=== PATIENT | female | born 1995 | race Caucasian/White ===

== ENCOUNTER 2016-08-02 15:23 | Emergency (ER) | payer OTHER ==
[2016-08-02 15:49] VITALS: BP 115/71
--- NOTE | 2016-08-02 15:59 | UC ---
Epistaxis Nasal HPI - HPI Summary HPI Summary: hit nose with care door yesterday right side of nose painful, right nare was bleeding - History of Current Complaint Chief Complaint: UCTrauma Stated Complaint: NOSE INJURY Time Seen by Provider: 08/02/16 15:44 Hx Obtained From: Patient Hx Last Menstrual Period: 08/01/16 ?: No Onset/Duration: Gradual Onset, Lasting Days - 1, Still Present Timing: Constant - pain---bleeding resolved quickly Severity Initially: Mild Severity Currently: Mild Pain Intensity: 5 Pain Scale Used: 0-10 Numeric Character: Light - now resolved Aggravating Factor(s): Nasal Trauma Alleviating Factor(s): Pressure Associated Signs And Symptoms: Positive: Negative - Allergies/Home Medications Allergies/Adverse Reactions: Allergies Allergy/AdvReac Type Severity Reaction Status Date / Time No Known Allergies Allergy Verified 08/02/16 15:49 Home Medications: Home Medications Acetaminophen [Acetaminophen Extra Stren] 1,000 mg PO DAILY 08/02/16 [History Confirmed 08/02/16] PMH/Surg Hx/FS Hx/Imm Hx Previously Healthy: Yes Endocrine History Of: Denies: Diabetes - Surgical History Surgical History: None Surgery Procedure, Year, and Place: WISDOM TOOTH REMOVED September - Family History Known Family History: Positive: None Family History: no bhengi-dcflpejnccc-tcxuskbn issues in family lineage - Social 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 Lives: With Family Alcohol Use: None Substance Use Type: None Smoking Status (MU): Light Every Day Tobacco Smoker Amount Used/How Often: 1/2 PPD Have You Smoked in the Last Year: Yes Household Exposure Type: Cigarettes Cessation Counseling: Counseled 3+Min - 10 Min - Immunization History Most Recent Influenza Vaccination: APRIL 2015 Review of Systems Constitutional: Negative Skin: Negative Eyes: Negative ENT: Other - nasal pain right side of nose was bleeding now resolved, patient states it is tender and feels swollen to her Respiratory: Negative Cardiovascular: Negative Gastrointestinal: Negative Genitourinary: Negative Motor: Negative Neurovascular: Negative Musculoskeletal: Negative Neurological: Negative Psychological: Negative All Other Systems Reviewed And Are Negative: Yes Physical Exam Triage Information Reviewed: Yes Appearance: Well-Appearing, No Pain Distress, Well-Nourished Vital Signs: Initial Vital Signs Temp 98.6 F 08/02/16 15:45 Pulse 77 08/02/16 15:45 Resp 16 08/02/16 15:45 BP 115/71 08/02/16 15:45 Pulse Ox 100 08/02/16 15:45 Vital Signs Reviewed: Yes Eye Exam: Normal Eyes: Positive: Conjunctiva Clear ENT Exam: Normal ENT: Positive: Pharynx normal, TMs normal. Negative: Nasal congestion, Nasal drainage, TM bulging, Tonsillar swelling, Tonsillar exudate, Trismus, Muffled/ hoarse voice Dental Exam: Normal Neck exam: Normal Neck: Positive: Supple, Nontender, No Lymphadenopathy Respiratory Exam: Normal Respiratory: Positive: Chest non-tender, Lungs clear, Normal breath sounds, No respiratory distress, No accessory muscle use Cardiovascular Exam: Normal Cardiovascular: Positive: RRR, No Murmur, Pulses Normal, Brisk Capillary Refill Musculoskeletal Exam: Normal Musculoskeletal: Positive: Strength Intact, ROM Intact, No Edema Neurological Exam: Normal Neurological: Positive: Alert, Muscle Tone Normal Psychological Exam: Normal Psychological: Positive: Normal Response To Family Skin Exam: Normal Diagnostics - Laboratory Diagnostic Studies Completed/Ordered: chip fracture of nasal bone Epistaxis Nasal Course/Dx - Course Course Of Treatment: rest nasal saline, ibuprofen follow with ENT PRN - Differential Dx/Diagnosis Differential Diagnosis/HQI/PQRI: Allergic Rhinitis, Coagulopathy, Trauma Provider Diagnoses: Chip fracture nasal bone Discharge - Discharge Plan Condition: Stable Disposition: HOME Patient Education Materials: Ibuprofen (By mouth), Nasal Fracture (ED) Referrals: Leeanne Dillon MD [Primary Care Provider] - Prince Corona MD [Medical Doctor] - If Needed
--- NOTE | 2016-08-02 16:37 | RAD ---
INDICATION: Nasal bone trauma. TECHNIQUE: 3 views of the nasal bones were obtained including lateral and Olivia views. FINDINGS: There is a 1 mm tiny calcific density at the tip of the nasal bones possibly representing a small chip fracture. No other fractures are seen. There is mild deviation of the nasal septum toward the right side. IMPRESSION: SMALL CHIP FRACTURE OF THE TIP OF THE NASAL BONES.
== END 2016-08-02 16:45 | disposition home or self-care (01) ==
LOC: UCCORT 15:23
DX: S02.2XXA Fracture of nasal bones, initial encounter for closed fracture (principal); W22.8XXA Striking against or struck by other objects, initial encounter; Y93.9 Activity, unspecified; Y92.9 Unspecified place or not applicable; F17.210 Nicotine dependence, cigarettes, uncomplicated
CPT/HCPCS: 70160; 99211; G0463

== ENCOUNTER 2019-07-27 09:19 | Emergency (ER) | payer BC ==
--- OUTSIDE RECORDS SUMMARY | 2019-07-27 10:38 | XMS REPORT | Continuity of Care Document ---
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 Problems Description No Information Available Social History Type Date Description Comments Sex Unknown Tobacco Use Start: Unknown Currently smokes 1-5 Cigarettes Daily Smoking Status Reviewed: 06/25/19 Currently smokes 1-5 Cigarettes Daily ETOH Use Occasionally consumes alcohol Tobacco Use Start: Unknown Patient denies history of smoking Allergies, Adverse Reactions, Alerts Description No Known Drug Allergies Medications Active Medications SIG Qnty Indications Ordering Provider Date Topamax 1 tab by mouth 60tabs Thompson-Helm, 05/28/2019 25mg Tablets once a day Lenka M., PORTAL DEVELOPER Prozac tab by mouth 90caps Thompson-Helm, 05/28/2019 10mg Capsules every day every Lenka M., PORTAL DEVELOPER night Immunizations Description No Information Available Vital Signs Date Vital Result Comment 06/25/2019 2:15pm BP Systolic 111 mmHg BP Diastolic 64 mmHg Body Temperature 98.2 F Heart Rate 93 /min Respiratory Rate 18 /min Weight 1418.00 lb Pain Level 3 O2 % BldC Oximetry 98 % 05/28/2019 8:57am Weight 139.00 lb Results Test Acquired Facility Test Result H/L Range Note Date Laboratory 06/25/2019 [facility] A Strep neg Pos, Neg, test finding Invalid BUN 05/28/2019 N2N/CCD Import Blood Urea Nitrogen 8 7-18 SerPl-mCnc Creat 05/28/2019 N2N/CCD Import Creatinine 0.5 Low 0.6-1.3 SerPl-mCnc GFR/Bsa 05/28/2019 N2N/CCD Import Estimated GFR >60 >60 pred.non (Non- black SerPl [place]i MDRD-ArVRat GFR/Bsa 05/28/2019 N2N/CCD Import Estimated GFR >60 >60 pred.black () SerPl MDRD-ArVRat BUN/Creat 05/28/2019 N2N/CCD Import BUN/Creatinine 16.0 SerPl Ratio Sodium 05/28/2019 N2N/CCD Import Sodium Level 137 136-145 SerPl-sCnc Potassium 05/28/2019 N2N/CCD Import Potassium Level 3.8 3.5-5.1 SerPl-sCnc Chloride 05/28/2019 N2N/CCD Import Chloride Level 109 High 98-107 SerPl-sCnc Co2 05/28/2019 N2N/CCD Import Carbon Dioxide 24 21-32 SerPl-sCnc Level Anion Gap 05/28/2019 N2N/CCD Import Anion Gap 4 Low 8-16 SerPl-sCnc Calcium 05/28/2019 N2N/CCD Import Calcium Level 8.6 8.5-10.1 SerPl-mCnc Prot 05/28/2019 N2N/CCD Import Total Protein 7.0 6.4-8.2 SerPl-mCnc Albumin 05/28/2019 N2N/CCD Import Albumin 3.3 Low 3.4-5.0 SerPl-mCnc Globulin Ser 05/28/2019 N2N/CCD Import Globulin 3.7 1.9-4.3 Calc-mCnc Albumin/Glob 05/28/2019 N2N/CCD Import Albumin/Globulin 0.9 SerPl Ratio Bilirub 05/28/2019 N2N/CCD Import Total Bilirubin 0.2 0.2-1.0 SerPl-mCnc Ast 05/28/2019 N2N/CCD Import Aspartate Amino 12 Low 15-37 SerPl-cCnc Transf (Ast/Sgot) Alt 05/28/2019 N2N/CCD Import Alanine 13 12-78 SerPl-cCnc Aminotransferase (Alt/SGPT) Alp 05/28/2019 N2N/CCD Import Alkaline 51 45-117 SerPl-cCnc Phosphatase TSH 05/28/2019 N2N/CCD Import Thyroid Stimulating 1.29 0.30-4.20 SerPl-aCnc Hormone (TSH) CBC 05/28/2019 [facility] White Blood Count 7.5 K/uL Normal 3.1-10.7 1 W/Automated [address] [place] [address] [phone] Red Blood Count 4.25 M/uL Normal 3.90-5.40 Hemoglobin 12.3 gm/dL Normal 11.6-15.8 Hematocrit 37.6 % Normal 36.0-46.1 Mean Cell Volume 88.5 fl Normal 80.9-99.0 Mean Corpuscular HGB 28.9 pg Normal 25.9-32.7 Mean Corpuscular HGB Conc 32.7 g/dL Normal 30.8-34.3 Platelet Count 239 K/uL Normal 155-360 Red Cell Distri Width SD 40.8 fl Normal 36-47 Red Cell Distri Width %CV 12.7 % Normal 11.7-14.4 Mean Platelet Volume 12.7 fl High 8.9-12.4 Neut% 60.4 % Normal 40.4-72.8 Lymph % 30.7 % Normal 20.0-42.0 Nicholas % 6.7 % Normal 4.3-13.2 Eo% 1.5 % Normal 0.0-6.6 Bas% 0.4 % Normal 0.0-1.1 Immature Grans 0.3 % Normal 0.0-5.0 NRBC % 0.0 /100WBC < 10/ 100 WBC Neut# 4.53 K/uL Normal 1.8-7.0 Lymph # 2.30 K/uL Normal 1.0-4.0 Nicholas # 0.50 K/uL Normal 0.3-0.9 Eos # 0.11 K/uL Normal 0.0-0.5 Baso # 0.03 K/uL Normal 0.0-0.1 Immature Grans Absolute 0.02 K/uL NRBC # 0.00 K/uL Laboratory test 05/28/2019 [facility] Troponin-I < 0.015 [address] ng/[place] [address] [phone] MCV RBC Auto 05/28/2019 N2N/CCD Import Mean Corpuscular 88.5 80.9-99 Volume .0 MCH RBC Qn Auto 05/28/2019 N2N/CCD Import Mean Corpuscular 28.9 25.9-32 Hemoglobin .7 MCHC RBC 05/28/2019 N2N/CCD Import Mean Corpuscular 32.7 30.8-34 Auto-mCnc Hemoglobin .3 Concent RDW RBC Auto 05/28/2019 N2N/CCD Import Red Cell 40.8 36-47 Distribution Width RDW RBC Auto-Rto 05/28/2019 N2N/CCD Import RDW Coefficient 12.7 11.7-14 of Variation .4 Neutrophils/leuk 05/28/2019 N2N/CCD Import Neutrophils (%) 60.4 40.4-72 NFr Bld Auto (Auto) .8 Lymphocytes/leuk 05/28/2019 N2N/CCD Import Lymphocytes (%) 30.7 20.0-42 NFr Bld Auto (Auto) .0 Monocytes/leuk 05/28/2019 N2N/CCD Import Monocytes (%) 6.7 4.3-13. NFr Bld Auto (Auto) 2 Eosinophil/leuk 05/28/2019 N2N/CCD Import Eosinophils (%) 1.5 0.0-6.6 NFr Bld Auto (Auto) Basophils/leuk 05/28/2019 N2N/CCD Import Basophils (%) 0.4 0.0-1.1 NFr Bld Auto (Auto) Imm 05/28/2019 N2N/CCD Import Immature 0.3 0.0-5.0 Granulocytes/leuk Granulocyte % NFr Bld Auto (Auto) nRBC/100 WBC Bld 05/28/2019 N2N/CCD Import Nucleated Red 0.0 < 10/ Auto-Rto Blood Cells % 100 WBC (auto) Neutrophils # Bld 05/28/2019 N2N/CCD Import Neutrophils # 4.53 1.8-7.0 Auto (Auto) Lymphocytes # Bld 05/28/2019 N2N/CCD Import Lymphocytes # 2.30 1.0-4.0 Auto (Auto) Monocytes # Bld 05/28/2019 N2N/CCD Import Monocytes # 0.50 0.3-0.9 Auto (Auto) Eosinophil # Bld 05/28/2019 N2N/CCD Import Eosinophils # 0.11 0.0-0.5 Auto (Auto) Basophils # Bld 05/28/2019 N2N/CCD Import Basophils # 0.03 0.0-0.1 Auto (Auto) Imm Granulocytes 05/28/2019 N2N/CCD Import Immature 0.02 # Bld Auto Granulocyte # (Auto) nRBC # Bld Auto 05/28/2019 N2N/CCD Import Nucleated RBC 0.00 Absolute Count (auto) Glucose 05/28/2019 N2N/CCD Import Glucose Screen 80 74-106 SerPl-mCnc 1 SENT FROM THE WALK IN CLINIC FOR AN EKG 2 0.0 - 0.045 ng/mL: Normal 0.046 - 0.5 ng/mL: Suggestive 0.6 - 1.5 ng/mL: Consistent Procedures Date Code Description Status 05/28/2019 69232 Event Monitor Inter/Review Only Completed Medical Devices Description No Information Available Encounters Type Date Location Provider Dx Diagnosis Office Visit 06/25/2019 Walk In [facility]ai J02.9 Acute pharyngitis, 2:15p Lenka Dubose, PORTAL DEVELOPER unspecified Office Visit 05/28/2019 Walk In Clinic [facility], R07.9 Chest pain, 8:00a RISHABH Muñoz unspecified R00.2 Palpitations Assessments Date Code Description Provider 06/25/2019 J02.9 Acute pharyngitis, unspecified Lenka Vergara, PORTAL DEVELOPER 05/28/2019 R00.0 Tachycardia, unspecified Rodrigo Rosado M.D., [facility] 05/28/2019 R00.2 Palpitations Rodrigo Rosado M.D., [facility] 05/28/2019 R07.9 Chest pain, unspecified Jay-Lenka Glynn, PORTAL DEVELOPER 05/28/2019 R94.31 Abnormal electrocardiogram [ECG] [EKG] Rodrigo Rosado M.D., [facility] 05/28/2019 R00.2 Palpitations Lenka Vergara FNP Plan of Treatment Future Appointment(s):06/30/2019 2:00 pm - Kimo Pond PA at [facility] [place]/25/2019 - Lenka Vergara, DANIELLEPJ02.9 Acute pharyngitis, unspecifiedComments:Warm saltwater gargles, Get lots of rest. Maintain good clear fluid intake to stay well hydrated. Frequent handwashing to prevent spread of germs. Please avoid exposure to tobacco smoke and/or polluted air. Take Tylenol (acetaminophen), Advil(ibuprofen), or alleve( naproxen) as needed for fever or aches, dosage according to package directions. Please follow-up with your primary care provider within 1 week for recheck.You can return to work or school when fever free for 24 hours without the use of fever reducing medication.- Functional Status Description No Information Available Mental Status Description No Information Available Referrals Description No Information Available
--- OUTSIDE RECORDS SUMMARY | 2019-07-27 10:38 | XMS REPORT | Continuity of Care Document ---
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 Problems Description No Information Available Social History [...] 25mg Tablets once a day Lenka M., FRAME COVERER Prozac tab by mouth 90caps Thompson-Helm, 05/28/2019 10mg Capsules every day every Lenka M., FRAME COVERER night Nuvaring Unknown 0.12-0.015mg/24HR Ring Immunizations Description No Information Available Vital Signs Date Vital Result Comment 06/30/2019 2:05pm BP Systolic Sitting Left Arm 116 mmHg BP Diastolic Sitting Left Arm 78 mmHg Heart Rate 83 /min Respiratory Rate 18 /min Weight 142.00 lb O2 % BldC Oximetry 98 % Ora 06/25/2019 2:15pm BP Systolic 111 mmHg BP Diastolic 64 mmHg Body Temperature 98.2 F Heart Rate 93 /min Respiratory Rate 18 /min Weight 1418.00 lb Pain Level 3 O2 % BldC Oximetry 98 % Results Test Acquired Facility Test Result H/L Range Note Date Laboratory 06/25/2019 [facility] A Strep neg Pos, Neg, test finding Invalid BUN 05/28/2019 N2N/CCD Import Blood Urea Nitrogen 8 7-18 SerPl-mCnc Creat 05/28/2019 N2N/CCD Import Creatinine 0.5 Low 0.6-1.3 SerPl-mCnc GFR/Bsa 05/28/2019 N2N/CCD Import Estimated GFR >60 >60 pred.non (Non- black SerPl [place]ian MDRD-ArVRat GFR/Bsa 05/28/2019 N2N/CCD Import Estimated GFR [...] 1.29 0.30-4.20 SerPl-aCnc Hormone (TSH) CBC 05/28/2019 [facility] White Blood Count 7.5 K/uL Normal 3.1-10.7 1 W/Automated [address] [place] [address] [phone] Red Blood Count 4.25 M/uL Normal 3.90-5.40 [...] 40.4-72.8 Lymph % 30.7 % Normal 20.0-42.0 [place] % 6.7 % Normal 4.3-13.2 Eo% 1.5 % Normal 0.0-6.6 Bas% 0.4 % Normal 0.0-1.1 Immature Grans 0.3 % Normal 0.0-5.0 NRBC % 0.0 /100WBC < 10/ 100 WBC Neut# 4.53 K/uL Normal 1.8-7.0 Lymph # 2.30 K/uL Normal 1.0-4.0 Rice # 0.50 K/uL Normal 0.3-0.9 Eos # 0.11 K/uL Normal 0.0-0.5 Baso # 0.03 K/uL Normal 0.0-0.1 Immature Grans Absolute 0.02 K/uL NRBC # 0.00 K/uL Laboratory test 05/28/2019 [facility] Troponin-I < 0.015 [address] ng/[place] [address] [phone] MCV RBC Auto 05/28/2019 N2N/CCD Import Mean [...] Consistent Procedures Date Code Description Status 05/28/2019 80000 Event Monitor Inter/Review Only Completed Medical Devices Description No Information Available Encounters Type Date Location Provider Dx Diagnosis Office Visit 06/30/2019 Cardiology Office Kimo Pond, R00.2 Palpitations 2:00p PA M79.661 Pain in right lower leg I49.3 Ventricular premature depolarization F17.210 Nicotine dependence, cigarettes, uncomplicated Office Visit 06/25/2019 2:15p Walk In [facility], J02.9 Acute pharyngitis, Clinic Lenka MMartha, FRAME COVERER unspecified Office Visit 05/28/2019 8:00a Walk In [facility], R07.9 [facility] FRAME COVERER unspecified R00.2 Palpitations Assessments Date Code Description Provider 06/30/2019 R00.2 Palpitations Kimo Pond, PA 06/30/2019 M79.661 Pain in right lower leg Kimo Pond, PA 06/30/2019 I49.3 Ventricular premature depolarization Kimo Pond, PA 06/30/2019 F17.210 Nicotine dependence, cigarettes, Kimo Pond., PA uncomplicated 06/25/2019 J02.9 [facility]itis, [facility] FRAME COVERER 05/28/2019 R00.0 Tachycardia, unspecified Rodrigo Rosado M.D., [facility] 05/28/2019 R00.2 Palpitations Rodrigo Rosado M.D., [facility] 05/28/2019 R07.9 Chest pain, unspecified Lenka Vergara, FRAME COVERER 05/28/2019 R94.31 Abnormal electrocardiogram [ECG] Rodrigo Rosado M.D. , [EKG] [facility] 05/28/2019 R00.2 Palpitations [facility]ergara, [facility] Plan of Treatment 06/30/2019 - Kimo Pond, PAR00.2 PalpitationsComments:Reassurance provided. She does not require any further testing or treatment at this time. She was counseled to limit caffeine and alcohol intake. She is working to cut back on tobacco as well.M79.661 Pain in right lower legNew Xrays:Venous Doppler Lower Extremity Right, Scheduled: 06/30/19Comments:Will rule out DVT with venous doppler. I contacted radiology and they will assess for Cheung's cyst as well.I49.3 Ventricular premature gsfemizqreuuphK14.210 Nicotine dependence, cigarettes, uncomplicatedComments:She had no success with NRT in the past. She wishes to stop cold turkey.AllFollow up:We will see the patient on a PRN basis from this point. We would be happy to see them again as deemed necessary. She will call for results of the ultrasound. Functional Status Functional Condition Comment Date Status Independent with all ADL's Active Mental Status Description No Information Available Referrals Description No Information Available
--- OUTSIDE RECORDS SUMMARY | 2019-07-27 10:38 | XMS REPORT | Continuity of Care Document ---
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 Problems Description No Information Available Social History Type Date Description Comments Sex Unknown Cigarette Use Family Does Not Smoke ETOH Use Occasionally consumes alcohol Tobacco Use Start: Unknown Patient denies history of smoking Smoking Status Reviewed: 05/28/19 Patient denies history of smoking Allergies, Adverse Reactions, Alerts Description No Known Drug Allergies Medications Active Medications SIG Qnty Indications Ordering Provider Date Topamax 1 tab by mouth 60tabs Jai, 05/28/2019 25mg Tablets once a day Lenka Dubose, GEOPHYSICAL E LOGGER Prozac tab by mouth 90caps Jai, 05/28/2019 10mg Capsules every day every Lenka M., GEOPHYSICAL E LOGGER night Immunizations Description No Information Available Vital Signs Date Vital Result Comment 05/28/2019 8:57am Weight 139.00 lb 05/28/2019 8:57am Height 62 inches Weight 139.00 lb BMI (Body Mass Index) 25.4 kg/m2 Results Test Acquired Facility Test Result H/L Range Note Date BUN 05/28/2019 N2N/CCD Import [facility] 8 7[facility]18 [facility] 05/28/2019 N2N/CCD Import Creatinine 0.5 Low 0.6-1.3 [facility] GFR/Bsa 05/28/2019 N2N/CCD Import Estimated GFR >60 >60 pred.non (Non- black SerPl [place]ian MDRD-ArVRat GFR/Bsa 05/28/2019 N2N/CCD Import Estimated GFR [...] TSH 05/28/2019 N2N/CCD Import Thyroid Stimulating 1.29 0.30-4.2 SerPl-aCnc Hormone (TSH) 0 CBC 05/28/2019 [facility] White Blood Count 7.5 K/uL Normal 3.1-10.7 1 W/Automated [address] [place] [address] [phone] Red Blood Count 4.25 M/uL Normal 3.90-5.40 [...] 40.4-72.8 Lymph % 30.7 % Normal 20.0-42.0 [place] % 6.7 % Normal 4.3-13.2 Eo% 1.5 % Normal 0.0-6.6 Bas% 0.4 % Normal 0.0-1.1 Immature Grans 0.3 % Normal 0.0-5.0 NRBC % 0.0 /100WBC < 10/ 100 WBC Neut# 4.53 K/uL Normal 1.8-7.0 Lymph # 2.30 K/uL Normal 1.0-4.0 [place] # 0.50 K/uL Normal 0.3-0.9 Eos # 0.11 K/uL Normal 0.0-0.5 Baso # 0.03 K/uL Normal 0.0-0.1 Immature Grans Absolute 0.02 K/uL NRBC # 0.00 K/uL Laboratory test 05/28/2019 [facility] Troponin-I < 0.015 [address] ng/[place] [address] [phone] MCV RBC Auto 05/28/2019 N2N/CCD Import Mean [...] Suggestive 0.6 - 1.5 ng/mL: Consistent Procedures Description No Information Available Medical Devices Description No Information Available Encounters Type Date Location Provider Dx Diagnosis Office Visit 05/28/2019 Walk In Clinic Jai R07.9 Chest pain, 8:00a RISHABH Muñoz unspecified R00.2 Palpitations Assessments Date Code Description Provider 05/28/2019 R07.9 Chest pain, unspecified Lenka Vergara FNP 05/28/2019 R00.2 Palpitations Lenak Vergara FNP Plan of Treatment 05/28/2019 - Lenka Vergara, FNPR07.9 Chest pain, unspecifiedComments :Referred to Emergency Department at [facility] for further evaluation and treatment. Patient verbalized understanding of instructions regarding further Emergency evaluation and treatmentand agreed with need for transfer.R00.2 PalpitationsAllNew Medication:Topamax 25 mg - 1 tab by mouth once a dayProzac 10 mg - tab by mouth every day every night Functional Status Description No Information Available Mental Status Description No Information Available Referrals Description No Information Available
--- OUTSIDE RECORDS SUMMARY | 2019-07-27 10:38 | XMS REPORT | Continuity of Care Document ---
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 Problems Description No Information Available Social History [...] 25mg Tablets once a day Lenka M., SHOE REPAIRER HELPER Prozac tab by mouth 90caps [place], 05/28/2019 10mg Capsules every day every Lenka M., SHOE REPAIRER HELPER night Nuvaring Unknown 0.12-0.015mg/24HR Ring Immunizations Description [...] GFR >60 >60 pred.non (Non- black SerPl Micronesian MDRD-ArVRat GFR/Bsa 05/28/2019 N2N/CCD Import Estimated GFR [...] 1.29 0.30-4.20 SerPl-aCnc Hormone (TSH) CBC 05/28/2019 [facility] White Blood Count 7.5 K/uL Normal 3.1-10.7 1 W/Automated [address] [place] [address] [phone] Red Blood Count 4.25 M/uL Normal 3.90-5.40 [...] 40.4-72.8 Lymph % 30.7 % Normal 20.0-42.0 [place] % 6.7 % Normal 4.3-13.2 Eo% 1.5 % Normal 0.0-6.6 Bas% 0.4 % Normal 0.0-1.1 Immature Grans 0.3 % Normal 0.0-5.0 NRBC % 0.0 /100WBC < 10/ 100 WBC Neut# 4.53 K/uL Normal 1.8-7.0 Lymph # 2.30 K/uL Normal 1.0-4.0 [place] # 0.50 K/uL Normal 0.3-0.9 Eos # 0.11 K/uL Normal 0.0-0.5 Baso # 0.03 K/uL Normal 0.0-0.1 Immature Grans Absolute 0.02 K/uL NRBC # 0.00 K/uL Laboratory test 05/28/2019 [facility] Troponin-I < 0.015 [address] ng/[place] [address] [phone] MCV RBC Auto 05/28/2019 N2N/CCD Import Mean [...] Consistent Procedures Date Code Description Status 05/28/2019 97294 Event Monitor Inter/Review Only Completed Medical Devices Description No Information Available Encounters Type Date Location Provider Dx Diagnosis Office Visit 06/30/2019 Cardiology Office Kimo Pond, R00.2 Palpitations 2:00p PA M79.661 Pain in right lower leg I49.3 Ventricular premature depolarization F17.210 Nicotine dependence, cigarettes, uncomplicated Office Visit 06/25/2019 2:15p Walk In [facility], J02.9 Acute pharyngitis, Clinic Lenka Dubose, SHOE REPAIRER HELPER unspecified Office Visit 05/28/2019 8:00a Walk In [facility], R07.9 [facility] HEL[facility] unspecified R00.2 Palpitations Assessments Date Code Description Provider 06/30/2019 R00.2 Palpitations Kimo Pond, PA 06/30/2019 M79.661 Pain in right lower leg Kimo Pond, PA 06/30/2019 I49.3 Ventricular premature depolarization Kimo Pond, PA 06/30/2019 F17.210 Nicotine dependence, cigarettes, Kimo Pond., PA uncomplicated 06/25/2019 J02.9 Acute pharyngitis, unspecified [facility], Lenka Gracy, SHOE REPAIRER HELPER 05/28/2019 R00.0 Tachycardia, unspecified Rodrigo Rosado M.D., [facility] 05/28/2019 R00.2 Palpitations Rodrigo Rosado M.D., [facility] 05/28/2019 R07.9 Chest pain, unspecified Lenka Vergara, [facility] 05/28/2019 R94.31 Abnormal electrocardiogram [ECG] Rodrigo Rosado M.D. , [EKG] [facility] 05/28/2019 R00.2 Palpitations Lenka Vergara, [facility] Plan of Treatment 06/30/2019 - Kimo Pond, [...] for Cheung's cyst as well.I49.3 Ventricular premature yxkfaknipxzdemY31.210 Nicotine dependence, cigarettes, uncomplicatedComments:She had no success [...]
[2019-07-27 10:46] VITALS: BP 107/49
--- NOTE | 2019-07-27 10:54 | UC ---
Respiratory Complaint HPI - HPI Summary HPI Summary: 23-year-old female who has had cold symptoms for about 2 weeks and now she feels like she may have pneumonia. She denies any fever or chills. Denies any asthma, is not a smoker. - History of Current Complaint Chief Complaint: UCRespiratory Stated Complaint: COUGH,RIB PAIN Time Seen by Provider: 07/27/19 10:46 Hx Obtained From: Patient Hx Last Menstrual Period: "It's due any day now." ?: No Onset/Duration: Gradual Onset Timing: Intermittent Episodes Severity Initially: Mild Severity Currently: Mild Pain Intensity: 6 Character: Cough: Productive - Occasional productive cough of whitish yellow sputum. Aggravating Factors: Nothing Alleviating Factors: Nothing Associated Signs And Symptoms: Positive: URI, Nasal Congestion - Allergies/Home Medications Allergies/Adverse Reactions: Allergies Allergy/AdvReac Type Severity Reaction Status Date / Time No Known Allergies Allergy Verified 07/27/19 10:40 Home Medications: Home Medications Etonogest/Eth.estradiol (Nf) [Nuvaring Vaginal Ring] 1 each VAGINAL .SEE COMMENTS 07/27/19 [History Confirmed 07/27/19] FLUoxetine CAP* [PROzac CAP*] 10 mg PO QAM 07/27/19 [History Confirmed 07/27/19] Ibuprofen TAB* [Advil TAB*] 800 mg PO Q8H PRN 07/27/19 [History Confirmed ] Topiramate TAB(*) [Topamax 25 MG tab] 25 mg PO QAM 07/27/19 [History Confirmed 07/27/19] guaiFENesin [Guaifenesin] 400 mg PO Q4H PRN 07/27/19 [History Confirmed 07/27/19 ] PMH/Surg Hx/FS Hx/Imm Hx Previously Healthy: Yes - Surgical History Surgical History: Yes Surgery Procedure, Year, and Place: [place] - Family History Known Family History: Positive: None, Cardiac Disease, Hypertension, Diabetes Family History: no kirlin-exhpokyaudp-bqkxibfv issues in family lineage - Social History Occupation: Employed Full-time Lives: With Family Alcohol Use: Rare Substance Use Type: None Smoking Status (MU): Light Every Day Tobacco Smoker Amount Used/How Often: <1/2 PPD Length of Time of Smoking/Using Tobacco: Started "too young" Have You Smoked in the Last Year: Yes Household Exposure Type: Cigarettes - Immunization History Most Recent Influenza Vaccination: APRIL 2015 Review of Systems All Other Systems Reviewed And Are Negative: Yes ENT: Positive: Nasal Discharge Respiratory: Positive: Cough Is Patient Immunocompromised?: No Physical Exam Triage Information Reviewed: Yes Appearance: Well-Appearing, No Pain Distress, Well-Nourished Vital Signs: Initial Vital Signs Temp 98.4 F 07/27/19 10:37 Pulse 80 07/27/19 10:37 Resp 18 07/27/19 10:37 BP 107/49 07/27/19 10:37 Pulse Ox 100 07/27/19 10:37 Vital Signs Reviewed: Yes Eyes: Positive: Conjunctiva Clear ENT: Positive: Pharynx normal, TMs normal, Uvula midline Neck: Positive: Supple, Nontender, No Lymphadenopathy Respiratory: Positive: Lungs clear, Normal breath sounds, No respiratory distress, No accessory muscle use Cardiovascular: Positive: RRR, No Murmur, Pulses Normal, Brisk Capillary Refill Musculoskeletal Exam: Normal Neurological Exam: Normal Psychological Exam: Normal Skin Exam: Normal Respiratory Course/Dx - Course Course Of Treatment: Chest x-ray:TECHNIQUE: Dual-energy PA and lateral views of the chest were obtained. FINDINGS: The heart is within normal limits in size. Mediastinal and hilar contours appear within normal limits. The lungs are clear. No pleural effusion is seen. IMPRESSION: NO EVIDENCE FOR ACTIVE CARDIOPULMONARY DISEASE. - Differential Dx/Diagnosis Provider Diagnosis: URI (upper respiratory infection) Discharge ED - Sign-Out/Discharge Documenting (check all that apply): Patient Departure All imaging exams completed and their final reports reviewed: Yes - Discharge Plan Condition: Good Disposition: HOME Patient Education Materials: Upper Respiratory Infection (ED) Referrals: Beltran Reid PA [Primary Care Provider] - Additional Instructions: Increase fluids, use her albuterol inhaler 2 puffs every 4-6 hours as needed for tight cough. Take ibuprofen every 8 hours for pain. Follow-up with your primary care provider as needed. - Billing Disposition and Condition Condition: GOOD Disposition: Home - Attestation Statements Provider Attestation: This patient was not seen by me. I was available for consult. Chart reviewed. ZULEYKA
== END 2019-07-27 11:36 | disposition home or self-care (01) ==
LOC: UCCORT 09:19
DX: J06.9 Acute upper respiratory infection, unspecified (principal); F17.290 Nicotine dependence, other tobacco product, uncomplicated
CPT/HCPCS: 71046; 99211; G0463